=== PATIENT | female | born 1950 | race Caucasian/White ===

== ENCOUNTER → 2016-10-21 | Outpatient (CLI) | payer MEDICARE | LOC: KOH-I 08:31 | DX: R74.0 Nonspecific elevation of levels of transaminase and lactic acid dehydrogenase [LDH] (principal); K76.0 Fatty (change of) liver, not elsewhere classified; Q61.02 Congenital multiple renal cysts | CPT/HCPCS: 76700 ==

== ENCOUNTER → 2021-12-14 | Outpatient (CLI) | payer MEDICARE | LOC: KOH-I 13:12 | DX: M79.672 Pain in left foot (principal); M20.12 Hallux valgus (acquired), left foot | CPT/HCPCS: 73630 ==